=== PATIENT | male | born 1965 | race Caucasian/White ===

== ENCOUNTER → 2017-03-13 | Outpatient (CLI) | payer OTHER ==
[~2017-03-13] MED LIST: OMEG300C PO
--- NOTE | 2017-03-13 10:49 | KCIC ---
EYE FOR FOREIGN BODY History: Screening for MRI, metal in the eyes previously Comparison: None. Findings: 2 views of the orbits are submitted. No metallic foreign body is identified in the region of orbits. Impression: 1. There is no metallic foreign body identified in the region of orbits. Electronically signed by: Rubén Zabala MD (03/13/2017 10:45 AM)
--- NOTE | 2017-03-13 11:26 | KCIC ---
Examination: MRI of the left wrist without contrast HISTORY: History of lump in the left wrist, History of small bump in the anterior wrist for 1 month. COMPARISON: None available. Technique: Multiplanar multisequence MR imaging of the left wrist were performed without contrast. FINDINGS: The extensor compartment tendons, flexor compartment tendons visualized is unremarkable. The median nerve within the carpal tunnel and the ulnar nerve in the Guyon's canal grossly appears unremarkable. The alignment of the carpal bones grossly appears unremarkable. Small cystic disease identified in distal portion of the lunate, triquetrum, capitate and hamate bones likely degenerative changes. There is a small cystic structure identified in the dorsal region of the medial lunate bone could be degeneration or ulnar abutment. There is some thinning of the triangular fibrocartilage in the ulnolunate region could be degeneration or a small tear. The scapholunate ligament, particularly grossly unremarkable Mild degenerative disease identified in the dorsal distal radioulnar joint No acute fracture identified. Mild degenerative disease identified in the first carpometacarpal joints At the site of marker placement in the volar aspect of the wrist at the level of the base of the thumb no definite evidence of focal cystic fluid collection identified however there is some mild skin thickening identified in this region with tortuous vessel. Mild degenerative disease identified in the carpometacarpal joints. IMPRESSION: 1. At the site of marker placement in the volar aspect of the wrist at the level of the base of the thumb no definite evidence of focal cystic fluid collection identified however there is some mild skin thickening identified in this region with tortuous vessel. 2. There is a small cystic structure identified in the dorsal region of the medial lunate bone could be degeneration or ulnar abutment. There is some thinning of the triangular fibrocartilage in the ulnolunate region could be degeneration or a small tear. If there is focal pain, MR arthrogram could be considered. Electronically signed by: Messi Paz MD (03/13/2017 11:23 AM)
== END | disposition home or self-care (01) ==
LOC: KCIC MRI 10:08
PROVIDERS: ATTEND Orthopaedic Surgery Sports Medicine
DX: M85.632 Other cyst of bone, left forearm (principal); R22.32 Localized swelling, mass and lump, left upper limb; R23.4 Changes in skin texture
CPT/HCPCS: 70030; 73221